=== PATIENT | male | born 1965 | race Caucasian/White ===

== ENCOUNTER 2023-10-30 16:28 | Observation (INO) | payer BC, SELFPAY ==
[2023-10-30] VITALS (32 sets, daily range): BP systolic 137–152; BP diastolic 74–109; PULSE 65–90; RESP 7–27; TEMP 36.8–37.2; O2SAT 93–98; BMI 43.3; BMI 45.2
--- NOTE | 2023-10-30 16:33 | ECG_ITS ---
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
--- NOTE | 2023-10-30 16:33 | XR_ITS ---
The [address] [address] Patient Name: JULIAN SMITH MRN: [id number] date: 1965 Sex: M Assigned Patient Location: ER Current Patient Location: ER Accession/Order Number: [id number] Exam Date: 10/30/2023 16:40 Report Date: 10/30/2023 17:13 At the request of: TUNG SINHA Procedure: XR chest 1V EXAM: XR chest 1V HISTORY: arm numbness COMPARISON: None. TECHNIQUE: Chest X-ray AP, 1 view FINDINGS: Support devices: None. Lungs/pleura: No consolidation, effusion, or pneumothorax. Heart and mediastinum: Normal contours. Bones: No acute abnormality identified. XR/XR chest 1V Impression: No radiographic evidence of acute cardiopulmonary process. Electronically authenticated by: RAHUL REEVES Date: 10/30/2023 17:13
--- NOTE | 2023-10-30 16:33 | CT_ITS ---
The [address] [address] Patient Name: JULIAN SMITH MRN: [id number] date: 1965 Sex: M Assigned Patient Location: ER Current Patient Location: ED.MAIN Accession/Order Number: [id number] Exam Date: 10/30/2023 16:40 Report Date: 10/30/2023 17:08 At the request of: TUNG BROWN Procedure: CT stroke head/brain wo con EXAM: CT stroke head/brain wo con HISTORY: right sided paresthesia COMPARISON: None. TECHNIQUE: Noncontrast CT was obtained through the head. FINDINGS: The ventricles, sulci, and remaining CSF containing spaces maintain age-appropriate volume and symmetry. No herniation or hydrocephalus. Small region of decreased attenuation at the left frontal ag radiata/left lentiform nucleus. No acute intracranial hemorrhage or parenchymal mass. The calvarium and skull base are intact. The pneumatized portions of the skull are clear. CT/CT stroke head/brain wo con IMPRESSION: 1. No acute intracranial hemorrhage. 2. Small region of decreased attenuation at the left frontal ag radiata/lentiform nucleus representing a small age indeterminate infarct. MRI may be helpful in further evaluation. Critical results were NOTIFIED by TELEPHONE BY Dr. Juan Miguel Arellano MD to Dr. Brown At 10/30/2023 5:08 PM EDT. Electronically authenticated by: FREDY ARELLANO Date: 10/30/2023 17:08
--- NOTE | 2023-10-30 16:40 | CT_ITS ---
The [address] [address] Patient Name: JULIAN SMITH MRN: [id number] date: 1965 Sex: M Assigned Patient Location: ED.MAIN Current Patient Location: Accession/Order Number: [id number] Exam Date: 10/30/2023 16:40 Report Date: 10/30/2023 18:55 At the request of: RODOLFO ORDRÍGUEZ Procedure: CT angio neck EXAM: CT angio neck HISTORY: Right sided numbness. COMPARISON: Head CT on 10/30/2023 TECHNIQUE: Following IV administration of iodinated contrast, axial CT scans of the head and neck were obtained. MPR and MIP images images were obtained. Carotid stenosis is based on NASCET criteria. Dose reduction techniques were achieved by using automated exposure control and/or adjustment of mA and/or kV according to patient size and/or use of iterative reconstruction technique. FINDINGS: CTA OF THE HEAD: No major branch occlusion or significant intracranial stenosis. No aneurysm. Dural venous sinuses are patent. CTA OF THE NECK: No abnormal soft tissue mass in the neck. The visualized lungs are clear. Osseous structures are intact. Aortic arch shows no aneurysm. The great vessels of the aortic arch show no significant stenosis. Vertebral arteries show no significant stenosis or dissection. Common carotids and internal carotids show no significant stenosis or dissection. CT/CT angio neck IMPRESSION: No large vessel occlusion. No significant intracranial stenosis. Patent dural venous sinuses. Common carotids and internal carotids show no dissection or significant stenosis. Vertebral arteries show no dissection or significant stenosis. Electronically authenticated by: PITA BOYER Date: 10/30/2023 18:55
--- NOTE | 2023-10-30 16:40 | CT_ITS ---
The [address] [address] Patient Name: JULIAN SMITH MRN: [id number] date: 1965 Sex: M Assigned Patient Location: ER Current Patient Location: Accession/Order Number: [id number] Exam Date: 10/30/2023 16:40 Report Date: 10/30/2023 18:55 At the request of: RODOFLO RODRÍGUEZ Procedure: CT angio head EXAM: CT angio neck HISTORY: Right sided numbness. COMPARISON: Head CT on 10/30/2023 TECHNIQUE: Following IV administration of iodinated contrast, axial CT scans of the head and neck were obtained. MPR and MIP images images were obtained. Carotid stenosis is based on NASCET criteria. Dose reduction techniques were achieved by using automated exposure control and/or adjustment of mA and/or kV according to patient size and/or use of iterative reconstruction technique. FINDINGS: CTA OF THE HEAD: No major branch occlusion or significant intracranial stenosis. No aneurysm. Dural venous sinuses are patent. CTA OF THE NECK: No abnormal soft tissue mass in the neck. The visualized lungs are clear. Osseous structures are intact. Aortic arch shows no aneurysm. The great vessels of the aortic arch show no significant stenosis. Vertebral arteries show no significant stenosis or dissection. Common carotids and internal carotids show no significant stenosis or dissection. CT/CT angio head IMPRESSION: No large vessel occlusion. No significant intracranial stenosis. Patent dural venous sinuses. Common carotids and internal carotids show no dissection or significant stenosis. Vertebral arteries show no dissection or significant stenosis. Electronically authenticated by: PITA BOYER Date: 10/30/2023 18:55
[2023-10-30 16:42] LABS: Glucometer 111 mg/dL (74-106)
[2023-10-30 16:49] LABS: Basophils Absolute Auto 0.1 10^3/uL (0.0-0.1); Basophils Percent Auto 0.6 % (0.2-2.0); Eosinophils Absolute Auto 0.2 10^3/uL (0.0-0.7); Hematocrit 45.3 % (42.0-54.0); Hemoglobin 15.6 g/dL (14.0-18.0); Immature Granulocytes Abs Auto 0.02 10^3/uL (0.00-0.03); Immature Granulocytes Pct Auto 0.2 % (0.0-0.5); Lymphocytes Absolute Auto 2.1 10^3/uL (1.2-3.8); Lymphocytes Percent Auto 20.6 % (20.5-60.0); Mean Corpuscular HGB Conc 34.4 g/dL (29.9-35.2); Mean Corpuscular Hemoglobin 33.2 pg (25.9-34.0); Mean Corpuscular Volume 96.4 fL (80.0-94.0); Mean Platelet Volume 9.8 fL (9.5-13.5); Monocytes Absolute Auto 0.8 10^3/uL (0.3-0.8); Neutrophils Absolute Auto 6.8 10^3/uL (1.4-6.5); Neutrophils Percent Auto 68.6 % (43.0-75.0); Platelet Count 238 10^3/uL (150-450); Red Cell Distribution Width 13.4 % (11.0-15.0); White Blood Count 9.9 10^3/uL (4.0-11.0)
[2023-10-30 17:01] LABS: INR 0.97; Partial Thromboplastin Time 26.9 sec (22.3-36.2); Prothrombin Time 10.3 sec (9.0-11.6)
[2023-10-30 17:03] LABS: Anion Gap 16.6; BUN Creatinine Ratio 16.7; Calcium 8.9 mg/dL (8.5-10.1); Chloride 101 mmol/L (98-107); Estimated GFR (African America >60 (>=60); Estimated GFR (Non-African Ame >60 (>=60); Glucose 104 mg/dL (74-106); Potassium 3.6 mmol/L (3.5-5.1); Sodium 139 mmol/L (136-145); Troponin I High Sensitivity <4.0 pg/mL (4.0-76.1)
--- NOTE | 2023-10-30 17:10 | ED.NEUROSD1 ---
HPI - Neuro Symptoms/Deficit General Chief Complaint: Neuro Symptoms/Deficit Stated Complaint: Chest Pain, Upper Extremity Numbness Time Seen by Provider: 10/30/23 16:33 Source: patient Mode of arrival: ambulance Limitations: no limitations History of Present Illness HPI Narrative: 58-year-old male presents via EMS with complaint of right-sided numbness, tingling. Locates to the right side of his face, right arm, right side of his chest and abdomen regions. Onset at 1500 hrs. 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 Has been on the road since Sunday. EMS first noted patient's blood pressure to be elevated above 200/100. He does have history of hypertension. While on arrival, EMS noted improvement of his blood pressure. However, his symptoms persisted. Denies any headache, dizziness, visual changes, focal weakness. Denies any anticoagulant use. Quality:?Numbness Severity:?Moderate Timing:?As above, constant Context: Normal setting and activity? Modifying factors:?None Associated symptoms: None Related Data Home Medications Medication Instructions Recorded Confirmed lisinopril 20 1 tab PO DAILY 10/30/23 10/30/23 mg-hydrochlorothiazide 12.5 mg tablet Allergies Allergy/AdvReac Type Severity Reaction Status Date / Time No Known Drug Allergies Allergy Verified 10/30/23 16:35 Review of Systems ROS Narrative CONST: Denies fever, chills HENT: Denies congestion, sore throat EYES: Denies eye redness, visual disturbance RESP: Denies cough, shortness of breath CV: Denies chest pain, palpitations GI: Denies abd pain, nausea, vomiting : Denies dysuria, flank pain MS: Denies back pain, myalgias SKIN: Denies color change, rash NEURO: + Numbness and tingling. Denies dizziness, facial asymmetry, headaches, light-headedness, seizures, syncope, tremors, weakness PSYCHIATRIC: Denies confusion, agitation PFSH PFSH Social History Smoking status: Current every day smoker Exam Narrative Exam Narrative: Vital signs reviewed Nurses notes noted CONST: Nontoxic, well appearing, well nourished, in no distress.? No diaphoresis.?? HENT: normocephalic, atraumatic, moist mucous membrane, no abnormalities of the nose noted, hearing normal, no facial droop EYES: PERRL, EOMI.? normal appearing conjunctiva, no apparent discharge bilat NECK: normal appearance CV: normal rate, regular rhythm, no murmur RESP: normal effort, speaking in complete sentences. Lung sounds clear and equal bilat.? No wheezes, rales, rhonchi GI: normal bowel sounds, soft, nontender, no distension : no CVA tenderness MS: no edema, injury SKIN: no pallor NEURO: Reports mild change in sensation to the right side of his face, right thorax. A&Ox 3, GCS = 15, no sensory, motor deficits.? CN normal as tested. NIH = 1 based on sensory deficit.? Patient able to touch left ear with right index finger, eyes closed, arms outstretched.? No abnormalities noted with coordination. No central or peripheral weakness to his arms or legs. Speech clear. Not aphasic. Not dysarthric. PSYCH: normal mood, affect.? Normal speech.? Memory intact Constitutional Vital Signs, click to edit/add: Last Vital Signs Temp 98.9 F 10/30/23 16:30 Pulse 80 10/30/23 18:40 Resp 19 10/30/23 18:40 BP 148/90 H 10/30/23 17:10 Pulse Ox 93 L 10/30/23 18:40 O2 Del Method Room Air 10/30/23 16:30 Course Reevaluation(s) Reevaluation #1: Continues to patient continues to have some numbness to the right side of his body. Denies any new symptoms. Cranial nerves remain intact. No motor deficits. Discussed with patient and results, plan, and disposition. They are agreeable with plan. Time: 19:35 Consultations Consultation #1: Patient discussed with DAREK Bourgeois, who is agreeable with observation, will put orders in on. Patient to be admitted under Dr. 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 Onset while he was driving on the road. Locates to the right side of his face, right arm, right side of his chest and abdomen. No extension beyond this. Patient with past medical history of hypertension, is a cigarette smoker. Denies prior history of CVA. On arrival, afebrile, vital signs are stable. On exam, nontoxic, well-appearing patient in no distress. He is ambulatory from the ambulance cot to the bed. Display steady gait, normal station. He has mild sensory deficit to the right side of his face. No other sensory deficit noted. Still has subjective numbness and tingling to the right side of his upper body. Cranial nerves intact. No facial asymmetry. No visual deficits. No extremity weakness. NIH equals 1 due to mild sensory deficit. Onset of symptoms at 1500 hrs. Risk of TNK outweighs benefits with NIH of 1 and non-debilitating symptoms present. Otherwise heart regular rate and rhythm. Lung sounds clear and equal bilaterally. No peripheral edema. EKG reveals no acute or concerning changes. Labs reveal no leukocytosis, anemia, thrombocytopenia, electrolyte imbalance, renal impairment. High-sensitivity troponin was less than 4.0. INR 0.97. CT, CTA head and neck imaging per radiologist reveals small region of decreased attenuation at the left frontal ag radiata/lentiform nucleus representing a small age indeterminate infarct. MRI may be helpful in further evaluation. No acute intracranial hemorrhage. No large vessel occlusion. No significant intracranial stenosis. Patient given aspirin. He was discussed with hospitalist. He will be placed in observation for further evaluation, neurochecks, MRI in the morning. Impression right-sided paresthesias rule out CVA ICH less likely based on imaging Large vessel occlusion less likely based on imaging Electrolyte imbalance less likely based on laboratory test Disposition ? The patient was admitted, observation status. Condition at time of disposition: stable ? PLEASE NOTE: Portions of the medical record may have been produced using electronic trouble tracer and may contain errors with respect to translation of words which may not have been identified prior to finalization of the chart. Medical Records Attestation: I reviewed the patient's medical records. Lab Data Attestation: I reviewed the patient's lab results. Labs: Lab Results 10/30/23 10/30/23 Range/Units 16:40 16:41 WBC 9.9 (4.0-11.0) 10^3/uL RBC 4.70 (4.70-6.10) 10^6/uL Hgb 15.6 (14.0-18.0) g/dL Hct 45.3 (42.0-54.0) % MCV 96.4 H (80.0-94.0) fL MCH 33.2 (25.9-34.0) pg MCHC 34.4 (29.9-35.2) g/dL RDW 13.4 (11.0-15.0) % Plt Count 238 (150-450) 10^3/uL MPV 9.8 (9.5-13.5) fL Neut % (Auto) 68.6 (43.0-75.0) % Lymph % (Auto) 20.6 (20.5-60.0) % [place] % (Auto) 8.0 (1.7-12.0) % Eos % (Auto) 2.0 (0.9-7.0) % Baso % (Auto) 0.6 (0.2-2.0) % Neut # (Auto) 6.8 H (1.4-6.5) 10^3/uL Lymph # (Auto) 2.1 (1.2-3.8) 10^3/uL [place] # (Auto) 0.8 (0.3-0.8) 10^3/uL Eos # (Auto) 0.2 (0.0-0.7) 10^3/uL Baso # (Auto) 0.1 (0.0-0.1) 10^3/uL Abs Immat Gran (auto) 0.02 (0.00-0.03) 10^3/uL Imm/Tot Granulo (auto) 0.2 (0.0-0.5) % PT 10.3 (9.0-11.6) sec INR 0.97 APTT 26.9 (22.3-36.2) sec Sodium 139 (136-145) mmol/L Potassium 3.6 (3.5-5.1) mmol/L Chloride 101 (98-107) mmol/L Carbon Dioxide 25.0 (21.0-32.0) mmol/L Anion Gap 16.6 BUN 15.0 (7.0-18.0) mg/dL Creatinine 0.90 (0.70-1.30) mg/dL Est GFR ( Amer) >60 (>=60) Est GFR (Non-Af Amer) >60 (>=60) BUN/Creatinine Ratio 16.7 Glucose 104 (74-106) mg/dL Calcium 8.9 (8.5-10.1) mg/dL Troponin I High Sens <4.0 L (4.0-76.1) pg/mL POC Glucose 111 H (74-106) mg/dL Imaging Data CT scan - head: Attestation: I have reviewed the pertinent imaging results. Radiologist's impression: ITS Impressions Brain CT 10/30/23 16:33 IMPRESSION: 1. No acute intracranial hemorrhage. 2. Small region of decreased attenuation at the left frontal ag radiata/lentiform nucleus representing a small age indeterminate infarct. MRI may be helpful in further evaluation. Critical results were NOTIFIED by TELEPHONE BY Dr. Juan Miguel Arellano MD to Dr. Brown At 10/30/2023 5:08 PM EDT. Electronically authenticated by: FREDY ARELLANO Date: 10/30/2023 17:08 Chest X-Ray 10/30/23 16:33 Impression: No radiographic evidence of acute cardiopulmonary process. Electronically authenticated by: RAHUL REEVES Date: 10/30/2023 17:13 Head CTA 10/30/23 16:40 IMPRESSION: No large vessel occlusion. No significant intracranial stenosis. Patent dural venous sinuses. Common carotids and internal carotids show no dissection or significant stenosis. Vertebral arteries show no dissection or significant stenosis. Electronically authenticated by: PITA BOYER Date: 10/30/2023 18:55 Neck CTA 10/30/23 16:40 IMPRESSION: No large vessel occlusion. No significant intracranial stenosis. Patent dural venous sinuses. Common carotids and internal carotids show no dissection or significant stenosis. Vertebral arteries show no dissection or significant stenosis. Electronically authenticated by: PITA BOYER Date: 10/30/2023 18:55 ECG Data Attestation: I personally reviewed and interpreted this ECG as follows: (EKG performed at 1635 reveals sinus rhythm at 83 bpm. No ischemia or ectopy noted. No other concerning changes.) Discharge Plan Discharge Chief Complaint: Neuro Symptoms/Deficit Clinical Impression: Facial paresthesia, Arm paresthesia, right Hypertension Qualifiers: Hypertension type: unspecified Qualified Code(s): I10 - Essential (primary) hypertension Patient Disposition: Admitted as Observation Time of Disposition Decision: 20:09 Condition: Good Prescriptions / Home Meds: No Action lisinopril-hydrochlorothiazide 20-12.5 mg tablet 1 tab PO DAILY Referrals: Physician,Non-Staff, MD [Primary Care Provider] - 1 week
[2023-10-30] MEDS: ASPIRIN 81 MG TAB.CHEW 324 MG PO (17:58)
[2023-10-31] VITALS (8 sets, daily range): BP systolic 132–158; BP diastolic 78–91; PULSE 60–72; RESP 16–19; TEMP 36.5–36.9; O2SAT 92–94
[2023-10-31 04:42] LABS: Basophils Absolute Auto 0.1 10^3/uL (0.0-0.1); Eosinophils Absolute Auto 0.2 10^3/uL (0.0-0.7); Eosinophils Percent Auto 2.9 % (0.9-7.0); Hematocrit 41.9 % (42.0-54.0); Hemoglobin 14.2 g/dL (14.0-18.0); Immature Granulocytes Abs Auto 0.03 10^3/uL (0.00-0.03); Immature Granulocytes Pct Auto 0.4 % (0.0-0.5); Lymphocytes Absolute Auto 2.1 10^3/uL (1.2-3.8); Lymphocytes Percent Auto 26.9 % (20.5-60.0); Mean Corpuscular HGB Conc 33.9 g/dL (29.9-35.2); Mean Corpuscular Hemoglobin 33.1 pg (25.9-34.0); Mean Corpuscular Volume 97.7 fL (80.0-94.0); Mean Platelet Volume 9.8 fL (9.5-13.5); Monocytes Absolute Auto 0.8 10^3/uL (0.3-0.8); Monocytes Percent Auto 10.3 % (1.7-12.0); Neutrophils Absolute Auto 4.7 10^3/uL (1.4-6.5); Neutrophils Percent Auto 58.5 % (43.0-75.0); Platelet Count 217 10^3/uL (150-450); Red Blood Count 4.29 10^6/uL (4.70-6.10); Red Cell Distribution Width 13.7 % (11.0-15.0)
[2023-10-31 05:04] LABS: INR 0.94
[2023-10-31 05:09] LABS: Alanine Aminotransferase 23 U/L (16-63); Albumin Globulin Ratio 0.8; Alkaline Phosphatase 60 U/L (46-116); Anion Gap 11.8; Aspartate Amino Transferase 13 U/L (15-37); BUN Creatinine Ratio 18.1; Bilirubin Total 0.3 mg/dL (0.2-1.0); Calcium 8.5 mg/dL (8.5-10.1); Carbon Dioxide 27.7 mmol/L (21.0-32.0); Chloride 104 mmol/L (98-107); Estimated GFR (African America >60 (>=60); Estimated GFR (Non-African Ame >60 (>=60); Globulin 3.8 g/dL; Glucose 114 mg/dL (74-106); Potassium 3.5 mmol/L (3.5-5.1); Sodium 140 mmol/L (136-145); Total Protein 6.8 g/dL (6.4-8.2)
--- NOTE | 2023-10-31 08:30 | MR_ITS ---
The [address] [address] Patient Name: JULIAN SMITH MRN: [id number] date: 1965 Sex: M Assigned Patient Location: MS Current Patient Location: MS Accession/Order Number: [id number] Exam Date: 10/31/2023 08:30 Report Date: 10/31/2023 09:32 At the request of: VITO PETERSEN Procedure: MR head/brain wo con EXAM: MR head/brain wo con CLINICAL INDICATION: TIA; R face/arm/R flank numbness starting 1500, COMPARISON: CTA head/neck 10/30/2023. TECHNIQUE/PROTOCOL: Standard noncontrast protocol brain MRI performed (Sagittal T1 with axial T1, T2, GRE, FLAIR, and diffusion-weighted imaging). FINDINGS: Subcentimeter curvilinear diffusion restricting focus involves the left thalamus demonstrates hyperintense T2 and FLAIR parenchymal signal. No extra-axial fluid collection, hydrocephalus, midline shift, or other mass effect. Intracranial flow voids are maintained. Innumerable scattered small hyperintense T2/FLAIR periventricular and subcortical foci are likely on the basis of chronic microvascular angiopathic changes. Mild symmetric global volume loss without lobar predominance. Slight commensurate ventricular system caliber prominence. Tiny cystic changes to the nonenlarged pineal gland. Normal marrow signal. No soft tissue abnormalities. Mild scattered paranasal sinus mucosal thickening. Small bilateral mastoid effusions. MR/MR head/brain wo con IMPRESSION: Recent (acute/subacute) subcentimeter left thalamic lacunar infarction. Report was submitted to the clinical operation support team for expedited review by the provider. Electronically authenticated by: SUSANA MILIAN Date: 10/31/2023 09:32
--- NOTE | 2023-10-31 09:16 | CA_ITS ---
Patient Name: JULIAN SMITH MR#: [id number] : 1965 Exam Date: 10/31/2023 Ordering Doctor: SAMY BLUM ECHOCARDIOGRAM REPORT PROCEDURE: CA ECHO DOPPLER COMPLETE INDICATIONS: CVA COMPARISON: None. DESCRIPTION: COMPLETE ECHOCARDIOGRAM Real-time transthoracic echocardiography with 2D, M-mode, spectral and color flow Doppler performed. QUALITY: Technical quality was adequate. LEFT VENTRICLE: Normal chamber size. Moderate concentric left ventricular hypertrophy. LV EF: Global left ventricular systolic function is hyperdynamic. Visual estimation of left ventricular ejection fraction is 65-70%. No obvious regional wall motion abnormalities. DIASTOLIC: Normal diastolic function. ATRIAL SEPTUM: Agitated saline contrast (suboptimal study) does not reveal an intra-cardiac shunt. LEFT ATRIUM: Normal chamber size. RIGHT ATRIUM: Normal chamber size. RIGHT VENTRICLE: Mild dilatation. Normal right ventricular systolic function. TRICUSPID VALVE: Normal mobility and thickness. No stenosis with trivial regurgitation. No evidence of pulmonary hypertension. RVSP 29mmHg MITRAL VALVE: Normal mobility and thickness. No evidence of mitral valve stenosis. There is no mitral annular calcification. No mitral regurgitation. AORTIC VALVE: Normal trileaflet appearance. No visible sclerosis. Normal leaflet mobility. No evidence of aortic valve stenosis. No aortic regurgitation. AORTIC ROOT: Normal diameter and appearance. PULMONIC VALVE: Normal thickness and mobility. No stenosis. No regurgitation. PERICARDIUM: Anterior free space; trivial effusion versus fat pad. IVC: Collapses with inspirations. Normal size. CONCLUSION: 1. Global left ventricular systolic function is hyperdynamic; visually estimated ejection fraction is 65 to 70% 2. Right ventricle is mildly dilated with normal systolic function 3. Moderately increased left ventricular wall thickness 4. Normal diastolic function 5. Valves are poorly seen; no significant valvular abnormalities 6. Anterior free space; trivial effusion versus fat pad 7. Agitated saline contrast (suboptimal opacification ) does not reveal an intracardiac shunt Adult Echocardiography Procedure Report Left Ventricle LVEDD (3.7 - 5.6 cm): 4.12 cm LVESD (2.2 - 4.0 cm): 2.61 cm LVIVS thickness (0.6 - 1.2 cm): 1.40 cm LVPW thickness (0.5 - 1.0 cm): 1.39 cm e': 0.09 m/s E - e': 7.89 LVOT Max Gradient: 2.36 mm[Hg] LVOT Area (cm2): 0.77 m/s Peak Velocity (LVOT): 0.77 m/s Mean Velocity (LVOT): 0.45 m/s LVOT Diameter 2.00 cm Left Ventricular Ejection Fraction: 68.50 % Left Atrium LA Volume Index (2D A2C): 27.96 ml/m2 Left Atrium Systolic Dimension: 3.86 cm Mitral Valve MV E to A Ratio: 1.00 Mitral Valve A-Wave Peak Velocity: 0.68 m/s Mitral Valve E-Wave Peak Velocity: 0.68 m/s Right Ventricle RV Internal Diastolic Dimension: 4.20 cm Aorta AO Root Diam: 3.14 cm Ascending Ao Diam: 3.02 cm Aortic Valve AoV Area (Peak Vikas): 2.35 cm2, 2.35 cm2 AoV Area (VTI): 2.34 cm2, 2.34 cm2 Peak Velocity(Antegrade Flow): 1.02 m/s Peak Gradient(Antegrade Flow): 4.20 mm[Hg] Mean Velocity(Antegrade Flow): 0.70 m/s Mean Gradient(Antegrade Flow): 2.18 mm[Hg] Velocity Time Integral: 20.94 cm Tricuspid Valve Peak Velocity (Regurgitant Flow): 1.57 m/s, 2.55 m/s, 2.35 m/s Pulmonic Valve Mean Gradient: 1.45 mm[Hg] Mean Velocity: 0.57 m/s Peak Velocity: 0.85 m/s, 0.91 m/s Peak Gradient: 2.91 mm[Hg], 3.31 mm[Hg] Right Atrium Right Atrium Systolic Pressure: 70.86 ml, 70.86 ml Dictated by: Nakul Mchugh M.D. on 11/01/2023 at 09:39 Approved by: Nakul Mchugh M.D. on 11/01/2023 at 09:43
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
--- NOTE | 2023-10-31 10:02 | SWNOTE1 ---
SW received message from case management and pt has no PCP and will need to get one as he will need follow ups. 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 SW to confirm his address and see if able to find a PCP in his area.
[2023-10-31] MEDS: ASPIRIN 81 MG TABLET.DR PO (10:04)
[2023-10-31 10:11] LABS: Chol HDL Ratio 7.6; Cholesterol 281 mg/dL (<=200); HDL Cholesterol 37 mg/dL (40-60); Triglycerides 354 mg/dL (<=150); VLDL CHOLESTEROL 70.8 mg/dL
--- NOTE | 2023-10-31 10:21 | SWNOTE1 ---
ARACELIS spoke with pt and in room. SW expressed to them that pt will need PCP and will need some follow up with neurology as well. Pt's pt voied they were in process of finding PCP, but can't remember the name of the physician pt liked. ARACELIS offered to print a list from [employer] for them to look over. ARACELIS expressed to pt and it may be easier for us to get him in quicker if he is able to chose a PCP while he is still here at hospital, they voiced understanding. ARACELIS went on to [employer] and printed a PCP list within a 25 mile radius of pt's zip code. There was over 20 pages. ARACELIS printed the first 11 pages as pt's provided her there zip code and the zip code for the [facility] next to them. Pt and are reviewing.
[2023-10-31 10:27] LABS: Estimated Average Glucose 111 mg/dL; Glycohemoglobin A1C 5.5 % (4.5-6.2)
--- NOTE | 2023-10-31 10:28 | CM.NOTE ---
Rounds made with Dr. Arnold, discussed in-depth with pt regarding diagnosis ,new medications, and importance of f/u with primary care doctor and neurologist. 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 Discussed with SW and she will give pt a list from his area in [place] accepting new pt's.
[2023-10-31] MEDS: CLOPIDOGREL BISULFATE 75 MG TABLET 300 MG PO (10:52)
--- NOTE | 2023-10-31 11:26 | SWNOTE1 ---
Pt and picked 5 different PCP/[employer]'s for SW to call and try to get in to. First and second choice is not taking new patients, third choice can't get him in until December or January. There 4th choice could have done appointment in 3-4 weeks but after further detail in regards to holter monitor and pt having a stroke, office decided they could not take pt.
--- NOTE | 2023-10-31 11:47 | SWNOTE1 ---
Pt and wifes 5th choice asked if we could call back as the physician's drug safety assistant is in room and she is not sure if they will follow in regards to holter monitor.
--- NOTE | 2023-10-31 11:47 | SWNOTE1 ---
SW spoke to pt's , pt was on phone. SW let her know that her first five choices did not work out as some were not willing to follow and some did not have appointments until December, January, March, or April.
--- NOTE | 2023-10-31 12:17 | SWNOTE1 ---
SW spoke to pt's about pt getting back in to the physician they saw before. She voiced they do not want to do that as she missed several diagnosis for pt and for herself. Pt's is alright with SW going down the list and finding someone. SW went down the list, many physicians are in the same group. Many offices closed, no answer, urgent cares, and some disconnected. ARACELIS found one physicians office that said they can get pt in within 1-2 weeks, she took down some information, pt's name, , and insurance info. She is going to run insurance and then call SW back. They are able to provide NPI number once they call back and have all the information.
--- NOTE | 2023-10-31 12:45 | SWNOTE1 ---
SW received call back from physician's office and Dr. Jody Leong, they will see him on 11/07/23 at 1:15. They will fax new patient paperwork over for pt. They will follow through with [facility] monitor as well. SW updated nursing and SW spoke to pt and . SW provided them with the contact and address for new PCP. SW let them know all the information will be in the discharge paperwork as well.
--- NOTE | 2023-10-31 13:02 | CA_ITS ---
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: : 1965 Requested By: 2022 Order Number: [id number] Reading MD: MARIA ELENA MEJÍA Interpretive Statements Predominant rhythm is sinus with average rate of 68 bpm Tachycardia - max rate of 127 bpm (SVT) - longest episode of 42sec with rates between 101-105 bpm - 1 episode of PSVT of 3 beat duration Bradycardia - min rate of 50 bpm - longest episode of 20min 6sec with rates between 56-59 bpm Ventricular ectopy - 8 total, <1% - 8 PVC Patient triggered events: none Impression: Predominant rhythm is sinus with average rate of 68 bpm Maximum rate of 127 (PSVT) bpm and min rate of 50 bpm 8 PVC No atrial fibrillation No pauses of blocks Electronically Signed On 11-16-2023 7:06:12 EDT by MARIA ELENA MEJÍA
--- NOTE | 2023-10-31 13:07 | SWNOTE1 ---
SW received new patient paperwork for PCP's office, SW gave to pt and .
--- NOTE | 2023-11-01 14:31 | CM.DCFOLLOWU ---
Person spoke with: patient How are you feeling? better How is your pain? no pain Did you understand your discharge instructions? yes Do you have any questions about your discharge instructions? no Were you given any prescriptions at discharge? yes Were you able to get your prescriptions filled? yes Do you understand how to take your medications as ordered? yes Do you have any questions about your follow up appointment and do you plan to keep your follow up appointment? no questions, they were able to move his follow up appointment with new PCP to tomorrow 11/02/23 Is there anything else that you would like to discuss? no Questions/Comments/Concerns/Other: Voiced him and his very pleased and impressed with the care he received at hospital.
== END 2023-10-31 15:09 | disposition home or self-care (01) ==
LOC: ER 20:10 → MS 20:48
PROVIDERS: Nurse Practitioner Acute Care; Admitting Provider Internal Medicine; Emergency Provider Student in an Organized Health Care Education/Training Program; Visit Provider Internal Medicine
DX: I63.81 Other cerebral infarction due to occlusion or stenosis of small artery (principal); E66.01 Morbid (severe) obesity due to excess calories; F17.210 Nicotine dependence, cigarettes, uncomplicated; E78.5 Hyperlipidemia, unspecified; I10 Essential (primary) hypertension; Z68.42 Body mass index [BMI] 45.0-49.9, adult; Z86.718 Personal history of other venous thrombosis and embolism; G47.30 Sleep apnea, unspecified; Z98.890 Other specified postprocedural states; Z79.82 Long term (current) use of aspirin; Z79.899 Other long term (current) drug therapy
CPT/HCPCS: 36415; 70450; 70496; 70498; 70551; 71045; 80048; 80053; 80061; 82948; 83036; 84484; 85025; 85610; 85730; 93005; 93242; 93306; 97161; 97165; 99285; G0378; Q3014; Q9967